=== PATIENT | male | born 1955 | race Caucasian/White ===

== ENCOUNTER 2018-06-26 05:12 | Inpatient (IN) ==
--- NOTE | 2018-06-18 13:16 | Anesthesiology Consultation ---
Date of Service June 18, 2018 Assessment & Plan (1) Encounter for pre-operative examination: Chart Review Chart Review: Acceptable Risk for Surgery and Patient seen in Pre Admission Testing Consults Requested none Teaching & Discussion Pre-Anesthesia Teaching/Discussion Notes: Instructed NPO after midnight before surgery, except medications with 15 cc of water. Medication instructions provided according to the PAT guidelines. History Surgery Operation Date: 06/26/18 10:40 Proposed Procedures p Left Total Hip Arthroplasty - Frederic Perales MD Height/Weight Height: 5 ft 9 in Weight: 108.3 kg Allergies Allergy/AdvReac Type Severity Reaction Status Date / Time No Known Allergies Allergy Unknown NONE Verified 06/18/18 12:57 Medications Home Medications Medication Instructions Recorded Confirmed Last Taken Cbd Cream 1 dose EXT DAILY 06/18/18 06/18/18 Unknown benazepril-hydrochlorothiazide 1 tab PO QAM 06/18/18 06/18/18 Unknown meloxicam 15 mg PO QAM 06/18/18 06/18/18 Unknown Past Medical History Medical History Hypertension Osteoarthritis Past Family History Family History Grandmother (Maternal) Family history of diabetes mellitus Past Surgical History Surgical History History of adenoidectomy History of appendectomy History of arthroscopy RT/LEFT KNEE History of colonoscopy History of tonsillectomy History of tooth extraction History of total knee replacement RT/LEFT TKA Past Anesthesia History No Hx of Anesthesia Complications and No Family Hx of Anesthesia Complications History of PONV No Motion Sickness Screening History of Motion Sickness: No Social History Smoking Status: Never smoker Do You Dip or Chew Tobacco: No Hx Alcohol Use: Yes Alcohol type: beer (usually beer) and wine (rare) Alcohol Intake Frequency Comment: 2-3/day during week, 6/day on weekends Hx Substance Use: No substance use type: does not use Exercise / Class Metabolic Activity II 4-5 Yardwork/Stairs/Walk up hill (Goes up stairs 6-8 times per day. Walks in the [facility] during hunting season. Denies CP. Rarely gets SOB with steep hills, never with stairs. ) Review of Systems Patient denies chest pain, shortness of breath, reflux, cough, wheezing, palpitations. +MATTHEWS (Rarely gets MATTHEWS with steep hills, never with stairs.) +Joint Pain (hips, knees) Physical Exam Vital Signs BP: 158/94 (states this is average for him) - advised P: 63 R: 20 T: 97.7 SPO2: 96% Constitutional + obese ENMT Thyromental Distance: > or= 3.5 Finger Breadths (3.5) Mallampati Class: I Neck normal visual inspection and trachea midline; neck extension not limited Respiratory normal respiratory effort Auscultation: lungs clear to auscultation bilaterally Cardiovascular Heart Sounds: no murmur Vessels: no carotid bruit Neurologic moves all extremities Psychiatric Orientation: alert and oriented x 3 Testing Electrocardiogram Date: 06/18/18 Findings: + NSR @ (63) Sinus rhythm with 1st degree A-V block. When compared with ECG of 05/08/08, MT interval has increased. Chest X-Ray Date: 06/18/18 Findings: + NAD FINDINGS: PA and lateral chest radiographs are compared to study dated 05/08/2008. The cardiomediastinal silhouette is unremarkable. The lungs and pleural spaces are clear. There is no pneumothorax. The skeletal structures appear osteopenic. Degenerative change is noted in the shoulders and thoracic spine. Laboratory Results 06/18/18 13:49 06/18/18 14:49 Blood Type A Negative 06/18/18 13:49 Antibody Screen NEGATIVE 06/18/18 13:49 PT 10.1 Seconds (9.0-12.0) 06/18/18 13:49 INR 1.0 (0.9-1.1) 06/18/18 13:49 APTT 25.7 Seconds (21.0-31.0) 06/18/18 13:49
--- NOTE | 2018-06-18 13:18 | PAT Medication Instructions ---
Medication Instructions Date of Service June 18, 2018 Home Medications Cbd Cream 1 dose EXT DAILY benazepril-hydrochlorothiazide 1 tab PO QAM meloxicam 15 mg PO QAM ASK your surgeon for instructions meloxicam 15 mg PO QAM STOP taking 24 hours before surgery Cbd Cream 1 dose EXT DAILY DO NOT take the morning of surgery benazepril-hydrochlorothiazide 1 tab PO QAM Take morning of surgery NOTHING TO EAT OR DRINK AFTER MIDNIGHT Other Notes If you have any questions please call us at [phone] or [phone] or [phone] or [phone]
--- NOTE | 2018-06-18 14:04 | XRay Report ---
TWO VIEW CHEST CLINICAL HISTORY: Preoperative examination. FINDINGS: PA and lateral chest radiographs are compared to study dated 05/08/2008. The cardiomediastina l silhouette is unremarkable. The lungs and pleural spaces are clear. There is no pneumothorax. The skeletal structures appear osteopenic. Degenerative change is noted in the shoulders and thoracic spi ne. IMPRESSION: No active disease in the chest. Electronically signed by: John Solares M.D. 06/18/2018 2:03 PM
[2018-06-18 14:30] LABS: Basophils # (auto) 0.02 K/uL (0-0.2); Basophils % (auto) 0.3 %; Eosinophils # (auto) 0.24 K/uL (0-0.5); Eosinophils % (auto) 3.2 %; Hematocrit (blood only) 43.8 % (42-52); Hemoglobin 15.1 g/dL (14.0-18.0); Immature Granulocytes # (auto) 0.01 K/uL (0.00-0.02); Immature Granulocytes % (auto) 0.1 %; Lymphocytes # (auto) 1.55 K/uL (1.2-3.4); Lymphocytes % (auto) 20.5 %; Mean Corpuscular Hgb Conc 34.5 g/dL (32-36); Mean Corpuscular Volume 92.6 fL (80-100); Mean Platelet Volume 10.5 fL (7.4-10.4); Monocytes # (auto) 0.62 K/uL (0.11-0.59); Monocytes % (auto) 8.2 %; Neutrophils # (auto) 5.12 K/uL (1.4-6.5); Neutrophils % (auto) 67.7 %; Platelet Count 232 K/uL (130-400); RDW Standard Deviation 50.8 fL (36.4-46.3); Red Blood Count 4.73 M/uL (4.7-6.1); White Blood Count 7.56 K/uL (4.8-10.8)
[2018-06-18 14:41] LABS: Partial Thromboplastin Ratio 0.9; Partial Thromboplastin Time 25.7 Seconds (21.0-31.0); Prothrombin Time 10.1 Seconds (9.0-12.0)
[2018-06-18 15:22] LABS: BUN Creatinine Ratio 21.9 (10-20); C Reactive Protein 0.42 mg/dl (0-0.29); Calcium 9.2 mg/dl (8.5-10.1); Creatinine Clr Calc Pharmacy 79.4 ml/min; Est GFR (African American) 78.3; Est GFR (Non-African American) 67.6; Potassium 4.8 mmol/L (3.5-5.1)
--- NOTE | 2018-06-22 15:29 | History and Physical Report ---
DATE OF ADMISSION: 06/26/2018 CHIEF COMPLAINT: Left hip pain. HISTORY OF PRESENT ILLNESS: A 63-year-old gentleman who presents for surgical treatment of his left hip pain. This has been bothered for about a year and half now. It has gradually gotten worse over time. He has been through extensive conservative treatment which really has not helped much. He describes mostly groin pain. The more he walks, the more it hurts. He has difficulty putting his shoes and socks on. He has nighttime pain. Of note, the patient had both of his knees replaced by Dr. Laughlin about 14 years ago and bothered by continued stiffness in his knee. This has been chronic and nothing new from that standpoint. PAST MEDICAL HISTORY: 1. Hypertension. 2. Obesity with BMI of 35. 3. Significant alcohol use. PAST SURGICAL HISTORY: Previous surgeries include: 1. Bilateral knee replacement done 14 years ago at the same sitting without signs of infection. 2. Bilateral knee scopes. 3. Appendectomy. 4. Tonsillectomy. ALLERGIES: None. CURRENT MEDICINES: Include: 1. Benazepril/hydrochlorothiazide 20/25 once a day. 2. Meloxicam 50 mg. 3. Tramadol. SOCIAL HISTORY: A 63-year-old male. He is . Drinks 10 drinks per week. Does not smoke. FAMILY HISTORY: Noncontributory. REVIEW OF HISTORY: Negative for diabetes, neurologic problems, vascular problems or bleeding disorders. Denies any chest pain or shortness of breath. No history of DVT or PE. PHYSICAL EXAMINATION: GENERAL: Physical examination shows a pleasant middle-aged male who looks to be in reasonably good health. HEENT: Benign. NECK: Supple. No lymphadenopathy. LUNGS: Clear to auscultation. HEART: Regular rate and rhythm. ABDOMEN: Soft, nontender, nondistended. EXTREMITIES: Grossly neurovascularly intact except as follows: Examination of the left hip reveals the patient walks with a bit of a limp. Leg lengths clinically appear pretty equal. He has limited hip motion. He can internally rotate to neutral, which causes pain. 30 degrees of external rotation. Negative straight leg raise. He is neurologically intact. Examination of both knees reveals well-healed incision. There is not much in the way of swelling, but his knees are pretty stiff with knee flexion on the left to about 90 and the right 80 degrees. IMAGING: X-rays of the left hip reviewed. Shows advanced left hip DJD. He has got near complete loss of his joint space. He has got some chondrocalcinosis. Fairly concentric joint space loss. ASSESSMENT: A 63-year-old gentleman 14 years out from bilateral knee replacement with residual stiffness with left hip pain consistent with advanced left hip arthritis. He has got chondrocalcinosis as well. He has failed conservative treatment and would like to have his left hip replaced. PLAN: We will take him to the operating room and do a left total hip replacement. The risks and benefits of this procedure were explained to the patient including but not limited to DVT, PE, , infection, neurological injury, vascular injury, bleeding problem, pain, limited range of motion, stiffness, failure to relief of symptoms, incomplete relief of symptoms, need for further surgery in the future, fracture, leg length inequality, nerve palsy, etc. The patient understands and desires to proceed. Informed consent was obtained. As far as discharge plans, he should be able to be discharged to home.
[2018-06-26] MEDS ORDERED: CEFAZOLIN 2000MG 2,000 MG/15 ML SYR IV SCH (06:00)
[2018-06-26] MEDS ORDERED: LR 500ML BOLUS, THEN 15ML/HR IV SCH (06:00)
[2018-06-26] MEDS ORDERED: FAMOTIDINE 20 MG TAB PO SCH (06:00)
[2018-06-26] MEDS ORDERED: ROPIVACAINE 0.5% HCL/PF 150 MG, BUPIVACAINE 0.5% MPF 30 ML, EPINEPHrine 30MG/30ML (OR U... INFIL SCH (06:00)
[2018-06-26] MEDS ORDERED: LR 60ML/HR IV SCH (06:00)
[2018-06-26] MEDS ORDERED: CeleBREX 200 MG CAP PO SCH (06:00)
[2018-06-26] MEDS ORDERED: METOCLOPRAMIDE HCL 10 MG TABLET PO SCH (06:00)
[2018-06-26] MEDS ORDERED: CLINDAMYCIN 600 MG/54 ML BAG IV SCH (06:00)
[2018-06-26] MEDS ORDERED: TRANEXAMIC ACID 1,000 MG **IV Pre-op IV SCH (06:00)
[2018-06-26] MEDS ORDERED: dexAMETHasone 4 MG TAB PO SCH (06:00)
[2018-06-26] MEDS ORDERED: ACETAMINOPHEN 500 MG TAB PO SCH (06:00)
[2018-06-26] MEDS ORDERED: GABAPENTIN 300 MG PO SCH (06:00)
[2018-06-26] MEDS ORDERED: TRANEXAMIC ACID 1,000 MG **IV Intra-op IV SCH (06:30)
[2018-06-26] MEDS ORDERED: BUPIVACAINE 0.5 % 5 MG/1 ML PF 10ML VIAL ONE (06:32)
[2018-06-26] MEDS ORDERED: BUPIVACAINE/EPINEPHRINE 0.5% MPF 1:200,000 30 ML VIAL ONE (06:35)
[2018-06-26] MEDS ORDERED: MIDAZOLAM HCL 1 MG/ML 2ML VIAL ONE ×2 (06:36→06:58)
[2018-06-26] MEDS ORDERED: PROPOFOL IV EMULSION 10 MG/ML 20 ML VIAL IV ONE ×3 (06:36→08:36)
[2018-06-26] MEDS ORDERED: BACITRACIN INJ 50,000 UNIT VIAL ONE (06:36)
[2018-06-26] MEDS ORDERED: fentaNYL citrate 100 MCG/2 ML VIAL ONE (06:37)
[2018-06-26] MEDS ORDERED: MoRPHine SULFATE PF 1 MG/ML 10 ML AMP/VIAL ONE (06:48)
--- NOTE | 2018-06-26 06:53 | History & Physical Bridge Note ---
Date of Service June 26, 2018 History & Physical Bridge Note I have examined the patient, reviewed the History & Physical and in the interval since the performance of the History & Physical I have noted the following changes of clinical significance: no changes noted
[2018-06-26] MEDS ORDERED: HYDROmorphone INJ 0.5 MG/0.5 ML SYR IV PRN (07:43)
[2018-06-26] MEDS ORDERED: NALOXONE HCL 0.08 MG in SYRINGE 1.8 ML IV PRN (07:43)
[2018-06-26] MEDS ORDERED: NALBUPHINE HCL INJ 10 MG/ML AMP IV PRN (07:43)
[2018-06-26] MEDS ORDERED: NALOXONE HCL 0.4 MG/1 ML VIAL/CARP IV PRN ×2 (07:43→09:53)
[2018-06-26] MEDS ORDERED: MoRPHine SULFATE PF 1 MG/ML 10 ML AMP/VIAL INT SPINAL ONE (07:43)
[2018-06-26] MEDS ORDERED: NALOXONE HCL 1 MG in SODIUM CHLORIDE 0.9% 1000ML 1,000 ML IV PRN (07:43)
[2018-06-26] MEDS ORDERED: ONDANSETRON INJ 2 MG/ML 2 ML VIAL IV PRN (07:43)
[2018-06-26] MEDS ORDERED: ePHEDrine sulfate 50 MG/ML AMP IV PRN ×2 (07:43→07:45)
[2018-06-26] MEDS ORDERED: LACTATED RINGER'S 500 ML IV PRN (07:43)
[2018-06-26] MEDS ORDERED: DiphenhydrAMINE HCL 50 MG/ML VIAL IV PRN (07:43)
[2018-06-26] MEDS ORDERED: NO NARCOTICS OR SEDATIVES SCH (07:45)
[2018-06-26] MEDS ORDERED: ATROPINE SULFATE 0.1 MG/ML 10ML SYR IV PRN (07:45)
[2018-06-26] MEDS ORDERED: SODIUM CHLORIDE 0.9% 1000ML 1,000 ML IV SCH (07:45)
--- NOTE | 2018-06-26 08:45 | Post Operative Brief Note ---
Immediate Post Op Note v1 Date of Surgery June 26, 2018 Pre & Post Diagnosis Operation Date: 06/26/18 07:00 Pre-Op Diagnosis: Left Hip Advanced Degenerative Joint Disease Post-Op Diagnosis: Left Hip Advanced Degenerative Joint Disease Procedure Operation Date: 06/26/18 07:00 Actual Procedures p Left Total Hip Arthroplasty, uncemented(Left) - Frederic Perales MD Surgeon Frederic Perales MD Manager Transportation Planning Car, PAC Estimated Blood Loss 300 Findings Consistent with Post-Op Diagnosis Fluids 1100 cc Specimens Left Femoral Head Drains St Catheter ([address] catheter inserted by Iris Mendez RN without difficulty. Clear yellow urine obtained, output to be monitored by Amelie field) Anesthesia Type Spinal MAC Complications none Disposition Accompanied Patient To Recovery: Yes Disposition: Recovery Room
--- NOTE | 2018-06-26 09:18 | Anesthesiology Progress Note ---
Date of Service June 26, 2018 Anesthesia Post Procedure Vital Signs Vital Signs: Temp Pulse Pulse Resp BP Pulse Ox 06/26/18 08:45 37.0 C 64 16 109/57 L 97 06/26/18 05:36 37 C 77 18 171/101 H 97 Pain Intensity Left Hip: Pain Intensity: 0 Notes Mental Status: alert / awake / arousable and participated in evaluation Nausea / Vomiting: adequately controlled Pain: adequately controlled Airway Patency, RR, SpO2: stable & adequate BP & HR: stable & adequate Hydration State: stable & adequate Neuraxial Anesthesia: was administered and sensory block is resolving Anesthetic Complications: no major complications apparent
--- NOTE | 2018-06-26 09:21 | XRay Report ---
XR hip 1V LT w pelvis CLINICAL HISTORY: Postoperative evaluation. COMPARISON: Pelvis and left hip radiographs June 18, 2018. FINDINGS: Alignment of the total left hip arthroplasty is anatomic. There is no periprosthetic fract ure or unexpected radiopaque foreign body. There are acetabular screws. Skin angie are present. IMPRESSION: Expected findings following total left hip arthroplasty. Electronically signed by: Jeff Mathias M.D. 06/26/2018 9:20 AM
[2018-06-26] MEDS ORDERED: CBD EXT SCH (09:53)
[2018-06-26] MEDS ORDERED: ALUMINUM/MAGNESIUM SUSP 30 ML UDC PO PRN (09:53)
[2018-06-26] MEDS ORDERED: MAGNESIUM HYDROXIDE SUSP 30 ML UDC PO PRN (09:53)
[2018-06-26] MEDS ORDERED: BISACODYL 10 MG SUPP PR PRN (09:53)
[2018-06-26] MEDS ORDERED: TAMSULOSIN HCL 0.4 MG CAP PO PRN (09:53)
[2018-06-26] MEDS: hydroCHLOROthiazide 25 MG TAB PO SCH (11:00)
[2018-06-26] MEDS: ENALAPRIL MALEATE 10 MG TAB PO SCH (11:00)
[2018-06-26] MEDS: FOLIC ACID 1 MG TAB PO SCH (11:01)
[2018-06-26] MEDS: THIAMINE HCL 100 MG TAB PO SCH (11:01)
[2018-06-26] MEDS: MULTIVITAMIN TAB PO SCH (11:02)
[2018-06-26] MEDS: DOCUSATE SODIUM 100 MG CAP PO SCH ×2 (11:02→21:23)
--- NOTE | 2018-06-26 11:31 | Operative Report ---
DATE OF OPERATION: 06/26/2018 SURGEON: Frederic Perales MD HOSPITAL MANAGER: ZENON Virgen PREOPERATIVE DIAGNOSIS: Left hip degenerative joint disease. POSTOPERATIVE DIAGNOSIS: Left hip degenerative joint disease. PROCEDURE PERFORMED: Left uncemented ceramic on highly cross-linked polyethylene total hip arthroplasty. COMPLICATIONS: None. ESTIMATED BLOOD LOSS: 300 mL. FLUID REPLACEMENT: 1100 mL crystalloid fluid replacement. ANESTHESIA: Spinal. DRAINS: None. SPECIMENS: Left femoral head sent for pathology. OPERATIVE INDICATIONS: The patient is a 63-year-old gentleman who has had a several-year history of left hip pain and discomfort that has gotten significantly worse over the past year. He has been through extensive conservative treatment. He continued to be bothered by groin pain. It is really limiting his activities. He failed conservative care and elected to proceed with total hip arthroplasty. X-ray showed moderate hip DJD. OPERATIVE FINDINGS: Operative findings revealed a moderate left hip DJD. He has significant joint effusion. He had a fairly stiff hip with a fairly tight joint capsule. He did have degenerative changes, but not a lot of eburnation. Not much in the way of osteophyte formation. OPERATIVE IMPLANTS: Operative implants consisted of: 1. A Biomet G7 size 56 mm acetabular shell. 2. 6.5 cancellous acetabular screws, 1 at 35 mm in length and 1 at 25 mm in length. 3. An apex hole eliminator. 4. Highly cross-linked polyethylene liner with 56 mm outer diameter, 36 mm inner diameter. 5. DePuy Corail size 14 KLA femoral stem. 6. A +1.5/36 mm ceramic articular ball. OPERATIVE PROCEDURE: The patient was taken to the operating room, identified and placed on the operating table in supine position. All contact areas were appropriately padded. IV antibiotics provided by anesthesia team. Spinal anesthetic was implemented in the holding area. Gamez catheter was placed in sterile fashion. The patient was then placed in the right lateral decubitus position. An axillary roll was placed. Stlberg hip positioner was used for positioning. Left hip and leg were then prepped and draped in usual sterile fashion. A posterolateral approach to the left hip was then performed through a curvilinear incision centered over the greater trochanter. Sharp dissection was carried through the subcutaneous tissues down to the level of the IT band and gluteal fascia. The IT band and gluteal fascia were then incised longitudinally in line with skin incision. The underlying greater trochanteric bursa was excised. The piriformis and external rotators in the posterior capsule were then released from the posterior aspect of the hip joint as a single layer. Great care was taken throughout the procedure to protect the sciatic nerve at all times. Hip was internally rotated and dislocated. Femoral neck osteotomy cut was made with the final cut a cm above the lesser trochanter. Femoral head was removed and sent for pathology. The femur was retracted anteriorly. Attention was then drawn to the acetabulum. The acetabulum labrum was excised. The pulvinar fat was excised. Sequential reaming of the acetabulum was then performed beginning with size 51 and progressing up to 55. A 56 mm Biomet G7 acetabular shell was then placed in about 20 degrees of anteversion and 40 degrees of lateral opening. It was fixed with two 6.5 cancellous acetabular screws. A trial liner was placed. Attention was then drawn to the femur. The proximal femur was entered with [employer] cutter followed by canal finder. I then broached beginning with a size 8 and progressing up to 14. We got good fit at 14. Calcar reamer was used to smoothen off the calcar. I then trialed the hip and the +5 articular ball provided full stability, but was just a bit tight in extension particularly. I then downsized to a +1.5 neck size. It was still a little bit tight in extension, but his leg lengths appeared appropriate and the hip was fully stable. We elected to place these implants as I did not feel any further modifications were necessary. The trial implants were removed. An apex hole eliminator was placed. Highly cross-linked polyethylene liner was placed. A DePuy Corail size 14 KLA femoral stem was impacted into position. A +1.5/36 mm ceramic articular ball was placed. Hip was located once again and found to be stable. Attention was then drawn toward closing. The wound was irrigated with copious amounts of pulsatile lavage solution. I did inject locally with 60 mL of 0.5% Marcaine with epinephrine. The posterior capsule and external rotators were then repaired through drill holes as a single layer with #2 Ti-Cron suture through drill holes in the posterior trochanter. The IT band and gluteal fascia were then closed with #1 PDS suture in running fashion. The subcutaneous tissues were then closed with 2 layers, the deep layer #1 Vicryl suture and subcutaneous tissues with 2-0 Dexon suture in a buried interrupted fashion. The skin was closed with skin angie. Leg was then cleaned, dried and a sterile dressing of Xeroform, 4 x 4s, ABD pad and foam tape was applied. The patient was then transferred to the recovery room in stable condition. The patient tolerated the procedure well with no complications. All needle and sponge counts were correct at the end of the operation. I attest to the content of the Intraoperative Record and any orders documented therein. Any exception s are noted below.
[2018-06-26] MEDS: ACETAMINOPHEN 500 MG TAB PO SCH ×2 (13:27→21:23)
[2018-06-26] MEDS ORDERED: INFLUENZA VIRUS QUAD VACCINE 0.5 ML SYR IM ONE (13:30)
[2018-06-26] MEDS ORDERED: INFLUENZA ADMINISTRATION CHARGE ONE (13:30)
--- NOTE | 2018-06-26 13:48 | Progress Note ---
DATE: 06/26/2018 SUBJECTIVE: A 63-year-old gentleman postop from a left hip replacement. He is doing well. Not had any pain. No chest pain or shortness of breath. Not feeling dizzy or lightheaded. OBJECTIVE: VITAL SIGNS: Temperature 36.5. Vital signs stable. GENERAL: Physical examination reveals a healthy, pleasant, middle-aged male. He is sitting up in his bed, eating his lunch. He looks comfortable. LUNGS: Clear to auscultation. HEART: Regular rate and rhythm. ABDOMEN: Soft, nontender, nondistended. EXTREMITIES: Grossly neurovascularly intact except as follows: Examination of the left lower extremity reveals the leg lengths to be equal. Hip is located. Dressing is clean, dry and intact. Thigh is soft and supple. He is neurologically intact. He can dorsiflex and plantarflex his foot appropriately. X-RAYS: X-rays of the left hip from recovery room reviewed. It shows left uncemented total hip arthroplasty. Components looked to be in good position. No signs of problems. ASSESSMENT: A 63-year-old gentleman postop from a left hip replacement, doing well. Hip is located. His pain is controlled. He is neurologically intact. PLAN: 1. DVT prophylaxis including thigh-high TEDs, SCDs, and aspirin twice a day. 2. PT/OT. Weight bear as tolerated. Left total hip protocol. 3. Pain control, doing well with current pain regimen. 4. IV antibiotics x24 hours. 5. Disposition: He is planning to be discharged to home. He is going to talk to social media coordinator tomorrow about the possible home health.
[2018-06-26] MEDS: CEFAZOLIN 2000MG 2,000 MG/15 ML SYR IV SCH ×2 (14:59→22:20)
[2018-06-26] MEDS ORDERED: TRANEXAMIC ACID 1,000 MG in 0.9 % SODIUM CHLORIDE 100 ML IV SCH (15:00)
[2018-06-26] MEDS: SODIUM CHLORIDE 0.9% 1000ML 1,000 ML IV SCH ×3 (15:31→22:19)
[2018-06-26] MEDS ORDERED: PROMETHAZINE HCL 12.5 MG in SODIUM CHLORIDE 0.9% 50 ML IV PRN (15:45)
[2018-06-26] MEDS: FERROUS GLUCONATE 324 MG TAB PO SCH (18:02)
[2018-06-26] MEDS: ASCORBIC ACID 500 MG TAB PO SCH (18:02)
[2018-06-26] MEDS: ASPIRIN 81 MG ECTAB PO SCH (21:23)
[2018-06-26] MEDS: SENNA 8.6 MG TAB PO SCH (21:23)
[2018-06-27] MEDS: SODIUM CHLORIDE 0.9% 1000ML 1,000 ML IV SCH (04:48)
[2018-06-27] MEDS: ACETAMINOPHEN 500 MG TAB PO SCH ×3 (05:35→20:37)
[2018-06-27 05:53] LABS: Basophils # (auto) 0.01 K/uL (0-0.2); Basophils % (auto) 0.1 %; Eosinophils % (auto) 1.3 %; Hemoglobin 12.5 g/dL (14.0-18.0); Immature Granulocytes # (auto) 0.01 K/uL (0.00-0.02); Immature Granulocytes % (auto) 0.1 %; Lymphocytes # (auto) 1.11 K/uL (1.2-3.4); Lymphocytes % (auto) 14.1 %; Mean Corpuscular Hgb Conc 34.7 g/dL (32-36); Mean Corpuscular Volume 91.8 fL (80-100); Mean Platelet Volume 10.3 fL (7.4-10.4); Monocytes # (auto) 0.88 K/uL (0.11-0.59); Monocytes % (auto) 11.2 %; Neutrophils # (auto) 5.78 K/uL (1.4-6.5); Neutrophils % (auto) 73.2 %; Platelet Count 207 K/uL (130-400); RDW Coefficient of Variation 14.9 % (11.5-14.5); RDW Standard Deviation 50.2 fL (36.4-46.3); Red Blood Count 3.92 M/uL (4.7-6.1); White Blood Count 7.89 K/uL (4.8-10.8)
[2018-06-27 06:19] LABS: BUN Creatinine Ratio 20.1 (10-20); Creatinine Clr Calc Pharmacy 120.4 ml/min; Est GFR (African American) 112.4; Est GFR (Non-African American) 96.9; Potassium 3.6 mmol/L (3.5-5.1)
--- NOTE | 2018-06-27 07:38 | Anesthesiology Progress Note ---
Date of Service June 27, 2018 Anesthesia Post Procedure Vital Signs Vital Signs: Temp Pulse Pulse Pulse Resp BP BP 06/27/18 07:03 37.3 C 83 16 125/74 06/27/18 06:46 16 06/27/18 05:40 16 06/27/18 04:40 16 06/27/18 04:00 37.4 C 73 18 105/66 06/27/18 02:40 16 06/27/18 01:45 16 06/27/18 00:39 16 06/26/18 23:45 16 06/26/18 23:40 16 06/26/18 23:29 37.2 C 73 18 105/66 06/26/18 22:39 16 06/26/18 21:45 16 06/26/18 20:41 16 06/26/18 19:54 36.6 C 75 18 06/26/18 18:44 17 06/26/18 17:41 16 06/26/18 16:50 16 06/26/18 15:56 18 06/26/18 15:23 36.6 C 77 20 06/26/18 14:40 16 06/26/18 13:40 18 06/26/18 12:40 16 06/26/18 12:23 70 16 06/26/18 11:40 16 06/26/18 11:23 68 18 06/26/18 10:40 61 16 06/26/18 10:12 62 16 06/26/18 09:40 36.5 C 65 16 06/26/18 09:26 60 14 123/69 06/26/18 09:25 59 L 14 06/26/18 09:21 36.7 C 60 12 130/70 06/26/18 09:20 65 23 06/26/18 09:16 64 19 104/73 06/26/18 09:14 62 19 135/54 L 06/26/18 09:10 65 06/26/18 09:06 61 15 130/70 06/26/18 09:05 61 12 06/26/18 09:01 61 20 107/67 06/26/18 09:00 62 12 06/26/18 08:56 60 19 121/70 06/26/18 08:55 62 22 06/26/18 08:51 57 L 15 114/62 06/26/18 08:50 57 L 18 06/26/18 08:46 56 L 12 109/57 L 06/26/18 08:45 37.0 C 64 16 BP Pulse Ox 06/27/18 07:03 95 06/27/18 06:46 96 06/27/18 05:40 96 06/27/18 04:40 96 06/27/18 04:00 97 06/27/18 02:40 96 06/27/18 01:45 93 06/27/18 00:39 94 06/26/18 23:45 93 06/26/18 23:40 93 06/26/18 23:29 97 06/26/18 22:39 97 06/26/18 21:45 97 06/26/18 20:41 95 06/26/18 19:54 147/83 H 94 06/26/18 18:44 93 06/26/18 17:41 93 06/26/18 16:50 92 06/26/18 15:56 95 06/26/18 15:23 153/84 H 96 06/26/18 14:40 98 06/26/18 13:40 98 06/26/18 12:40 96 06/26/18 12:23 145/84 H 97 06/26/18 11:40 98 06/26/18 11:23 138/80 97 06/26/18 10:40 138/88 98 06/26/18 10:12 133/86 96 06/26/18 09:40 126/74 97 06/26/18 09:26 93 06/26/18 09:25 96 06/26/18 09:21 94 06/26/18 09:20 94 06/26/18 09:16 96 06/26/18 09:14 94 06/26/18 09:10 95 06/26/18 09:06 94 06/26/18 09:05 96 06/26/18 09:01 95 06/26/18 09:00 93 06/26/18 08:56 95 06/26/18 08:55 96 06/26/18 08:51 99 06/26/18 08:50 99 06/26/18 08:46 99 06/26/18 08:45 109/57 L 97 Pain Intensity Left Hip: Pain Intensity: 8 Notes Mental Status: alert / awake / arousable and participated in evaluation Patient Amnestic to Procedure: Yes Nausea / Vomiting: adequately controlled Pain: adequately controlled and improving with treatment Airway Patency, RR, SpO2: stable & adequate BP & HR: stable & adequate Hydration State: stable & adequate Neuraxial Anesthesia: was administered and sensory block resolved Anesthetic Complications: no major complications apparent
[2018-06-27] MEDS ORDERED: DC INTRASPINAL MORPHINE SCH (07:44)
[2018-06-27] MEDS ORDERED: chlordiazePOXIDE HCl 25 MG CAP PO PRN (08:00)
[2018-06-27] MEDS ORDERED: HYDROmorphone INJ 0.5 MG/0.5 ML SYR IV PRN (08:00)
[2018-06-27] MEDS ORDERED: ONDANSETRON INJ 2 MG/ML 2 ML VIAL IV PRN (08:00)
[2018-06-27] MEDS ORDERED: METOCLOPRAMIDE HCL INJ 5 MG/ML 2 ML VIAL IV PRN (08:00)
[2018-06-27] MEDS: OXYCODONE HCL IR 5 MG TAB (IMMEDIATE RELEASE) PO PRN ×3 (08:14→20:36)
[2018-06-27] MEDS: DOCUSATE SODIUM 100 MG CAP PO SCH ×2 (08:16→20:28)
[2018-06-27] MEDS: ENALAPRIL MALEATE 10 MG TAB PO SCH (08:17)
[2018-06-27] MEDS: THIAMINE HCL 100 MG TAB PO SCH (08:18)
[2018-06-27] MEDS: MULTIVITAMIN TAB PO SCH (08:18)
[2018-06-27] MEDS: FERROUS GLUCONATE 324 MG TAB PO SCH ×2 (08:18→18:08)
[2018-06-27] MEDS: FOLIC ACID 1 MG TAB PO SCH (08:18)
[2018-06-27] MEDS: ASPIRIN 81 MG ECTAB PO SCH ×2 (08:19→20:29)
[2018-06-27] MEDS: hydroCHLOROthiazide 25 MG TAB PO SCH (08:19)
[2018-06-27] MEDS: ASCORBIC ACID 500 MG TAB PO SCH ×2 (08:19→18:08)
[2018-06-27] MEDS: KETOROLAC 30 MG/ML VIAL IV SCH ×3 (08:21→20:28)
[2018-06-27] MEDS: TAPENTADOL HCL ER 50 MG TABCR PO SCH ×2 (08:22→20:35)
--- NOTE | 2018-06-27 10:49 | Progress Note ---
DATE: 06/27/2018 SUBJECTIVE: A 63-year-old gentleman postop day 1 from a left hip replacement. He is doing pretty well. Hip is pretty sore this morning. He took some pain medicine, doing okay with that. No chest pain or shortness of breath. Not feeling dizzy or lightheaded. OBJECTIVE: VITAL SIGNS: Temperature is 37.3. Vital signs stable. GENERAL: Physical examination shows a pleasant, middle-aged male. He is sitting up in his bedside chair and looks comfortable. EXTREMITIES: Examination of the left hip and leg reveals the dressing to be clean, dry and intact. Leg lengths were equal. Hip is located. Thigh is soft and supple. Dressing is clean, dry, and intact. He is neurologically intact. LABORATORY DATA: Hemoglobin 12.5, hematocrit 36.0. Electrolytes are normal. ASSESSMENT: A 63-year-old gentleman postop day 1 from a left hip replacement, doing pretty well. Pain has been reasonably well controlled. Hip is located. He is neurologically intact. PLAN: 1. DVT prophylaxis including thigh-high TEDs, SCDs, and aspirin twice a day. 2. PT/OT. Weightbearing as tolerated. Left total hip protocol. 3. Pain control, doing pretty well with current pain regimen. 4. Disposition: He is planning to be discharged to home likely with some home health for the first 2 weeks.
[2018-06-27] MEDS: SENNA 8.6 MG TAB PO SCH (20:28)
[2018-06-27 22:59] VITALS: O2SAT 95
[2018-06-28] MEDS: KETOROLAC 30 MG/ML VIAL IV SCH ×2 (01:17→08:41)
[2018-06-28] MEDS: ACETAMINOPHEN 500 MG TAB PO SCH (06:27)
[2018-06-28 07:08] VITALS: BP 118/74; PULSE 69; TEMP 98.2
--- NOTE | 2018-06-28 07:22 | Progress Note ---
DATE: 06/28/2018 SUBJECTIVE: A 63-year-old gentleman postop day 2 from left hip replacement. She is doing well. Pain is a bit better this morning. A little less soreness. No chest pain or shortness of breath. Not feeling dizzy or lightheaded. OBJECTIVE: VITAL SIGNS: Temperature 36.8. Vital signs stable. GENERAL: Physical examination shows a pleasant, middle-aged male. He is sitting up in bed, looks pretty comfortable. EXTREMITIES: Examination of the left hip and leg reveals the leg lengths to be equal. Hip is located. Dressing clean, dry and intact. Thigh is soft and supple. He is neurologically intact. ASSESSMENT: A 63-year-old gentleman postop day 2 from a left hip replacement, doing well. Pain is controlled. Hip is located. He is neurologically intact. PLAN: 1. DVT prophylaxis including thigh-high TEDs, SCDs, and aspirin twice a day. 2. PT/OT. Weight bear as tolerated. Left total hip protocol. 3. Pain control, doing well with current pain regimen. 4. Disposition: Plan to discharge to home with some home health likely later today.
[2018-06-28] MEDS: DOCUSATE SODIUM 100 MG CAP PO SCH (08:40)
[2018-06-28] MEDS: FERROUS GLUCONATE 324 MG TAB PO SCH (08:40)
[2018-06-28] MEDS: ASPIRIN 81 MG ECTAB PO SCH (08:41)
[2018-06-28] MEDS: TAPENTADOL HCL ER 50 MG TABCR PO SCH (08:41)
[2018-06-28] MEDS: ASCORBIC ACID 500 MG TAB PO SCH (08:41)
[2018-06-28] MEDS: THIAMINE HCL 100 MG TAB PO SCH (08:41)
[2018-06-28] MEDS: MULTIVITAMIN TAB PO SCH (08:41)
[2018-06-28] MEDS: ENALAPRIL MALEATE 10 MG TAB PO SCH (08:41)
[2018-06-28] MEDS: FOLIC ACID 1 MG TAB PO SCH (08:41)
[2018-06-28] MEDS: hydroCHLOROthiazide 25 MG TAB PO SCH (08:41)
--- NOTE | 2018-07-03 13:44 | Discharge Summary ---
ADMITTING PHYSICIAN AND SURGEON: Dr. Frederic Perales. ADMITTING DIAGNOSIS: Left hip degenerative joint disease. SURGERY PERFORMED: Left total hip arthroplasty. SECONDARY DIAGNOSES: Hypertension, obesity, significant alcohol use. CONSULTS: None obtained. HISTORY AND PHYSICAL EXAMINATION: Well documented in the patient's chart. HOSPITAL COURSE: The patient was admitted on 06/26/2018 underwent total hip arthroplasty, tolerated the procedure well. There were no complications. He was transferred to the PACU postoperatively and later to the orthopedic floor for further care. He was given Ancef for antibiotic prophylaxis, ANNA MARIE stockings, SCDs and aspirin for DVT prophylaxis. Hemoglobin, hematocrit and vital signs were monitored during his hospital stay and remained stable. He did not require blood transfusions. There were no complications. On postoperative day 2, he was tolerating a regular diet, pain was controlled with oral pain medicine. He was participating in physical therapy. On postop day 2 he was discharged home, set up with home health services. He was given printed discharge instructions including new prescriptions for extra strength Tylenol, aspirin, and oxycodone. Continue his home medications, continue physical therapy, weightbearing as tolerated, ANNA MARIE stockings, total hip precautions. Follow up approximately 2 weeks postoperatively or sooner if there are any problems or concerns.
== END 2018-06-28 11:41 | disposition home health service (06) | DRG 470 ==
LOC: ASU 05:12 → 3E 08:51